=== PATIENT | male | born 1985 ===

== ENCOUNTER 2020-11-29 13:13 | Outpatient (CLI) | payer OTHER, SELFPAY | END 2020-11-29 13:14 | disposition home or self-care (01) | LOC: ANHCOVIDVC 13:13 | PROVIDERS: PCP Internal Medicine | DX: Z23 Encounter for immunization (principal) | CPT/HCPCS: 0001A; 91300 ==

== ENCOUNTER 2020-12-20 13:11 | Outpatient (CLI) | payer OTHER, SELFPAY | END 2020-12-20 13:12 | disposition home or self-care (01) | LOC: ANHCOVIDVC 13:11 | PROVIDERS: PCP Internal Medicine | DX: Z23 Encounter for immunization (principal) | CPT/HCPCS: 0002A; 91300 ==